=== PATIENT | female | born 1960 | race Caucasian/White ===

== ENCOUNTER → 2023-12-27 | Outpatient (CLI) | payer MEDICAID, SELFPAY ==
[2023-12-27 16:17] LABS: Absolute Lymphocyte Count 1.54 X10^3/uL (0.83-4.51); Absolute Neutrophil Count 3.3 X10^3/uL (2.0-7.7); Basophil# 0.05 X10^3/uL; Basophil% 0.9 % (0-1); Eosinophils% 1.8 % (0-5); Hematocrit 43.2 % (37-47); Hemoglobin 13.3 g/dL (12.0-15.0); Lymphocyte # 1.54 X10^3/ul (0.83-4.51); Lymphocyte % 28.1 % (19-41); Mean Corp Hgb Conc 30.8 g/dL (32-36); Mean Corpuscular Hgb 28.8 pg (27.0-32.0); Mean Corpuscular Volume 93.5 fL (81-99); Mean Platelet Vol. 11.9 fl (6.2-12.0); Monocyte# 0.46 X10^3/uL; Monocyte% 8.4 % (0-10); NRBC Flagged by Analyzer 0 % (0-5); Neutrophil # 3.33 X10^3/uL (2.7-7.7); Neutrophil % 60.6 % (47-70); Platelet Count 176 K/mm3 (150-450); RBC Distribution Width CV 12.9 % (11.6-14.6); RBC Distribution Width SD 44.2 fl (35.1-43.9); Red Blood Count 4.62 M/mm3 (4.2-5.4); White Blood Count 5.5 K/mm3 (4.4-11.0)
[2023-12-27 16:33] LABS: Vitamin D,25 Hydroxy 50.4 ng/mL
[2023-12-27 16:58] LABS: ALB/GLOB Ratio 1.1 RATIO (0.9-2.4); AST(SGOT) 19 U/L (15-37); Alanine Aminotransfer ALT/SGPT 22 U/L (13-56); Albumin, Serum 3.7 g/dL (3.2-5.0); Alkaline Phosphatase 65 U/L (45-117); Anion Gap 5 (5-15); BUN 21 mg/dL (7-18); BUN/Creat Ratio 27.6 RATIO (10-20); Chloride 105 mmol/L (98-107); Cholesterol 261 mg/dL (200); Creatinine, Serum 0.76 mg/dL (0.55-1.02); EST Glomerular Filtration Rate 81 mL/min (>60); Est Glom Filt Rate - Afr Amer 98 mL/min (>60); Globulin 3.3 g/dL (2.2-4.2); Glucose 85 mg/dL (74-106); High Density Lipoprotein 72 mg/dL; Potassium 4.2 mmol/L (3.5-5.1); Sodium Level 141 mmol/L (136-145); Triglycerides 179 mg/dL; Very Low Density Lipoprotein 36 mg/dL (5-40)
== END | disposition home or self-care (01) ==
PROVIDERS: PCP Nurse Practitioner Family; Referring Provider Nurse Practitioner Family; Visit Provider Nurse Practitioner Family
DX: Z00.01 Encounter for general adult medical examination with abnormal findings (principal)
CPT/HCPCS: 36415; 80053; 80061; 82306; 85025

== ENCOUNTER → 2024-02-03 | Outpatient (CLI) | payer MEDICAID, SELFPAY ==
--- NOTE | 2024-02-03 09:09 | CT_ITS ---
CT RIGHT LOWER EXTREMITY WITH 3-D IMAGING CLINICAL INDICATION: PRE OP TECHNIQUE: Axial CT images of the right lower extremity (including pelvis, bilateral hips, and bilateral knees). Was performed without IV contrast material. Coronal and sagittal reformats were provided. The protocol utilizes one or more of the following dose reduction techniques: automated exposure control, adjustment of mA and/or kV according to patient size, and/or use of iterative reconstruction technique. RADIATION DOSAGE (If Supplied By Facility): CTDIvol = ( 14.07 ) mGy, DLP = ( 916.80 ) mGycm COMPARISON: No relevant prior comparison study available. FINDINGS: Bones: There is severe degenerative arthrosis of the right hip joint with [id number], marginal osteophyte formation, and subchondral sclerosis/cyst formation. There is a 1.9 cm ossified loose body in the inferior recess of the right hip joint. There is moderate to severe degenerative arthrosis of the left hip joint. There is tricompartment degenerative arthrosis of the knee joints bilaterally, most pronounced in the medial femorotibial compartments bilaterally. There is degenerative disc disease in the visualized lumbosacral spine. Osseous structures are intact without evidence of fracture or dislocation. No lytic or blastic osseous masses. Soft Tissues: The deep soft tissue structures are unremarkable. The superficial soft tissues are unremarkable without evidence of edema, hematoma, or foreign body. CT/Extremity Lower without Contra IMPRESSION: Severe degenerative arthrosis of the right hip joint, as detailed above. 1.9 cm ossified loose body in the inferior recess of the right hip joint. Electronically Signed: Mundo Hampton MD at 9:54 EDT ,
== END | disposition home or self-care (01) ==
LOC: CT 09:06
PROVIDERS: PCP Nurse Practitioner Family; Referring Provider Student in an Organized Health Care Education/Training Program; Visit Provider Student in an Organized Health Care Education/Training Program
DX: M16.11 Unilateral primary osteoarthritis, right hip (principal)
CPT/HCPCS: 73700

== ENCOUNTER 2024-02-27 07:35 | Day surgery (SDC) | payer MEDICAID, SELFPAY ==
--- NOTE | 2024-02-03 09:07 | EKG12_ITS ---
Test Reason : PRE OP Blood Pressure : / mmHG Vent. Rate : 063 BPM Atrial Rate : 063 BPM P-R Int : 150 ms QRS Dur : 088 ms QT Int : 400 ms P-R-T Axes : 050 069 050 degrees QTc Int : 409 ms Normal sinus rhythm Low voltage QRS Borderline ECG Confirmed by LITA PECK, TORIE ([id number]), index editor JOSH MENDOZA ([id number]) on 02/03/2024 12:49:33 PM Referred By: Finn Tiwari Confirmed By:TORIE LONDON MD
[2024-02-03 10:17] LABS: Albumin, Serum 3.3 g/dL (3.2-5.0); Magnesium 2.2 mg/dL (1.6-2.6)
[2024-02-27] VITALS (14 sets, daily range): BP systolic 91–140; BP diastolic 57–81; PULSE 53–71; RESP 12–16; TEMP 36.1–36.2; O2SAT 93–100; BMI 38.5
[2024-02-27] MEDS: Lactated Ringers 1,000 ML 999 ML IV ×2 (08:01→11:37)
[2024-02-27] MEDS: Magnesium 1 GM over 15 mins IV (08:02)
[2024-02-27] MEDS: Celecoxib 200 MG Capsule 400 MG PO (08:04)
[2024-02-27] MEDS: Gabapentin 600 MG Tablet PO (08:04)
[2024-02-27] MEDS: Acetaminophen 500 MG Tablet 1000 MG PO ×2 (08:04→15:53)
[2024-02-27 08:19] LABS: Bedside Glucose 88 mg/dL (74-106)
--- NOTE | 2024-02-27 08:26 | PRE.ANES_ITS ---
ASA Classification* ASA Classification ASA Classification: 3 Assessment & Plan Anesthesia* Anesthesia Assessment Anesthesia Assessment: Discussed sedation and/or anesthesia options, risks, benefits, and alternatives with patient/parents/legal guardian/POA. Questions invited. The patient/parents/legal guardian/POA seems to understand and agrees to proceed with anesthesia plan. Reviewed the physical assessment, medical history, allergy history and patient home medications list prior to surgery/procedure/anesthetic and documented any changes. Performed airway and anesthesia risk assessments. Anesthesia Type Anesthesia Type: Spinal (GA bkup) Anesthesia Focused Assessment* Temperature: 97.2 F Pulse Rate: 71 Blood Pressure: 140/68 Respiratory Rate: 16 Pulse Ox: 100 Airway Assessment Mouth opens: >3 cm Mallampati Score: II Focused Labs Anesthesia Preop lab: CBC WBC 5.5 K/mm3 (4.4-11.0) 12/27/23 14:05 RBC 4.62 M/mm3 (4.2-5.4) 12/27/23 14:05 Hgb 13.3 g/dL (12.0-15.0) 12/27/23 14:05 Hct 43.2 % (37-47) 12/27/23 14:05 Plt Count 176 K/mm3 (150-450) 12/27/23 14:05 CHEMISTRY Potassium 4.2 mmol/L (3.5-5.1) 12/27/23 14:05 Sodium 141 mmol/L (136-145) 12/27/23 14:05 Magnesium 2.2 mg/dL (1.6-2.6) 02/03/24 09:32 BUN 21 mg/dL (7-18) H 12/27/23 14:05 Creatinine 0.76 mg/dL (0.55-1.02) 12/27/23 14:05 Glucose 85 mg/dL (74-106) 12/27/23 14:05 POC Glucose 88 mg/dL (74-106) 02/27/24 07:53 COAG Pre-Assessment Diagnosis/Proposed Procedure Planned Operative Procedure(s): ROBOTIC ASSISTED RIGHT TOTAL HIP ARTHROPLASTY Anesthesia History 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 When Was Last Pacemaker Check QUESTION #4 FULL TEXT: You/Your Family Experience fever (hyperthermia) with Anesthesia Last Oral Intake Last Oral intake: Last Oral Intake NPO since 20:00 02/27/24 07:51 Meds taken in AM with sips of Yes 02/27/24 07:51 water? Meds patient instructed to coreg 02/27/24 07:51 take am of surgery PONV PONV - agricultural and forestry supervisor: PONV - agricultural and forestry supervisor Female Yes 01/31/24 13:14 HX of Motion Sickness No 01/31/24 13:14 HX of N/V After Surgery No 01/31/24 13:14 Non-Smoker Yes 01/31/24 13:14 Duration of Surgery greater Yes 01/31/24 13:14 than 60 minutes Number of Risk Factors 3 01/31/24 13:14 PONV Score Moderate Risk 01/31/24 13:14 Height & Weight Height & Weight: Anesthesia: Height & Weight Height 5 ft 8 in 02/27/24 07:51 Weight: 115 kg 02/27/24 07:51 Body Mass Index (BMI) 38.5 02/27/24 07:51 Respiratory Assessment Respiratory Assessment - agricultural and forestry supervisor: Respiratory Tract Infection Hx - agricultural and forestry supervisor Hx Respiratory Tract Infection No 01/31/24 13:14 STOP Sleep Apnea STOP Sleep Apnea - agricultural and forestry supervisor: STOP Sleep Apnea - agricultural and forestry supervisor Hx Hypertension Yes 01/31/24 13:14 Hx Sleep Apnea No 01/31/24 13:14 CPAP Yes 12/12/23 09:40 BIPAP No 12/12/23 09:40 Do you snore loudly (louder No 01/31/24 13:14 than talking or can be heard Do you often feel tired/ No 01/31/24 13:14 fatigued/ sleepy during daytime? Has anyone observed you stop No 01/31/24 13:14 breathing during sleep? STOP Results Negative 01/31/24 13:14 QUESTION #5 FULL TEXT : Do you snore loudly (louder than talking or can be heard through closed doors)? 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 Specify any problems Hx of Preganancy in last 3 No 01/31/24 13:14 Months Nurse Filling Out Transfusion [facility] 01/31/24 13:14 & Questions: Date: 01/31/24 01/31/24 13:14 Time: 13:27 01/31/24 13:14 Patient unable to answer at this time (ie. confused, unrespo /Reproduction History /Reproductive History - agricultural and forestry supervisor: /Reproductive Hx- agricultural and forestry supervisor Hx Now No 01/31/24 13:14 Gestational Age (in weeks): EDC: Hx Hx Para Hx Section SAB No 01/31/24 13:14 Active Medications Active Medications: Current Medications Generic Name Dose Route Start Last Admin Trade Name Gildardo PRN Reason Stop Dose Admin Acetaminophen 1,000 mg 02/27/24 12:15 02/27/24 08:04 Acetaminophen 500 Mg Tablet PO 02/27/24 12:16 1,000 mg X1 ONE Administration Celecoxib 400 mg 02/27/24 12:15 02/27/24 08:04 Celecoxib 200 Mg Capsule PO 02/27/24 12:16 400 mg X1 ONE Administration Sodium Chloride 77.4 ml/ 0 ml 02/27/24 12:15 Ropivacaine 200 mg/ OPERA.SITE 02/27/24 12:16 Epinephrine HCl 0.6 mg/ X1 ONE Ketorolac Tromethamine 30 mg/ Morphine Sulfate 5 mg Dexamethasone Sodium Phosphate 10 mg 02/27/24 12:15 Dexamethasone 10 Mg/Ml Vial IV 02/27/24 12:16 X1 ONE Gabapentin 600 mg 02/27/24 12:15 02/27/24 08:04 Gabapentin 600 Mg Tablet PO 02/27/24 12:16 600 mg X1 ONE Administration Lactated Ringer's 1,000 mls @ 999 mls/hr 02/27/24 12:15 02/27/24 08:01 IV 02/27/24 13:15 999 mls/hr .Q1H1M CHRIS Administration Cefazolin Sodium 2 gm/ Sodium 110 mls @ 150 mls/hr 02/27/24 12:15 Chloride IV 02/27/24 12:58 PREOP ONE Tranexamic Acid 1,000 mg/ 110 mls @ 660 mls/hr 02/27/24 12:15 Sodium Chloride IV 02/27/24 12:24 X1 ONE Tranexamic Acid 1,000 mg/ 110 mls @ 660 mls/hr 02/27/24 13:15 Sodium Chloride IV 02/27/24 13:24 X1 ONE Lactated Ringer's 1,000 mls @ 999 mls/hr 02/27/24 13:15 IV 02/27/24 14:15 .Q1H1M CHRIS Lactated Ringer's 1,000 mls @ 125 mls/hr 02/27/24 14:15 IV 02/27/24 22:14 .Q8H CHRIS Magnesium Sulfate 1 gm/ 102 mls @ 408 mls/hr 02/27/24 12:15 02/27/24 08:02 Dextrose IV 02/27/24 12:29 408 mls/hr X1 ONE Administration Insulin Human Lispro 1 - 6 unit 02/27/24 12:15 Insulin Lispro 100 Unit/Ml Insuln.Pen SC 02/27/24 18:15 Q4H PRN PRN BG>/= 180, SEE PROTOCOL Protocol PFSH Medical History Wears glasses History of steroid therapy Walker as ambulation aid Arthritis DVT (deep venous thrombosis) Injury of head and neck Dietary restriction Former smoker Asthma History of stress test Hypertension Cardiology follow-up encounter History of femur fracture Home Medications ?Medication ?Instructions ?Recorded ?Last Taken ?Type albuterol sulfate 2.5 mg/3 mL 2.5 mg inhalation Q6H PRN PRN 09/06/24 Unknown History (0.083 %) solution for nebulization wheezing albuterol sulfate 90 mcg/actuation 1 puff inhalation Q4H PRN PRN 01/31/24 Unknown History aerosol inhaler wheezing carvedilol 25 mg tablet 25 mg PO BID 01/31/24 02/27/24 History ibuprofen 200 mg capsule 400 mg PO Q4H PRN pain 01/31/24 Unknown History Allergy/AdvReac Type Severity Reaction Status Date / Time aspirin (From Percodan) Allergy Other Verified 02/27/24 07:49 lisinopril Allergy Angioedema Verified 02/27/24 07:49 morphine Allergy Hives Verified 02/27/24 07:49 oxycodone (From Percodan) Allergy Other Verified 02/27/24 07:49 Surgical History History of mandibular surgery History of cervical spinal surgery History of oophorectomy, unilateral History of cholecystectomy History of hysterectomy History of D&C History of shoulder surgery History of knee surgery Social History Smoking Status: Former smoker Review of Systems (Anesthesia) ROS Narrative System reviewed and no additional complaints, except as documented.
[2024-02-27] MEDS: Cefazolin 2 GM in 0.9% Normal Saline (100mL Bag) 100 ML IV (09:00)
[2024-02-27] MEDS: TXA 1000mg in NS100 100ml (IVPB at Incision) 660 MG IV (09:15)
[2024-02-27] MEDS: dexAMETHasone 10 MG/ML Vial IV (09:15)
--- NOTE | 2024-02-27 10:30 | HIP_PTH ---
PATIENT: MONIE [address] LOC: [facility] – [place] U#:[id number] AGE/SX: 63/F ROOM: RE02/27/[address]: Dr. Finn Tiwari DO : 1960 BED: DIS: 02/27/2024 SPEC #: [id number] RECD: 02/27/24 18:15 STATUS: ROSE MARY REShad #: [id number] TIN: 02/27/24 10:[address]: Finn Tiwari DEPT: SURGICAL PATHOLOGY RECD BY: Hang Freire ENTERED: 02/28/24 07:41 SP TYPE: TOTAL HIP OTHR DR: Cielo Salgado, CAE ENGINEER-C Tissues: Hip, NOS Procedures: Decalcification bone/plaque Surgery Specimen Level IV HEADER OPERATION: Robotic assisted right total hip arthroplasty PRE-OP DIAGNOSIS: Severe osteoarthritis of right hip, arthritis, high blood pressure TISSUE SUBMITTED: Right hip bone and tissue MICROSCOPIC DIAGNOSIS Bone and tissue of right hip, total hip resection: Severe degenerative joint disease. AM: 03/04/2024 MICROSCOPIC DESCRIPTION Slides are reviewed. GROSS DESCRIPTION Received is one container labeled with the patient's name and designated bone and soft tissue right hip. The specimen consists of a garcia femoral head (with portion of femoral neck). The femoral head measures 5.0 x 6.0 x 4.5 cm portion of femoral neck measures up to 1.2 cm in length. The articular surface displays prominent osteophyte formation, eburnation and bone erosion. Also present in the specimen container are multiple irregular fragments of bone reamings and pink-yellow soft tissue measuring in aggregate 9.0 x 9.0 x 3.0 cm. A piece of soft tissue is noted measuring 6.0 x 1.5 x 0.5cm. Agency Owner sections are submitted in two cassettes as follows: 1 - soft tissue, 2 - bone after decalcification. / DEZ. 02/28/2024 TC:5 CPT: 08561, 37350
[2024-02-27] MEDS: JPS (Morphine 10mg/ml) OPERA.SITE (11:01)
[2024-02-27] MEDS: TXA 1000mg in NS100 100ml (IVPB at Closure) 660 MG IV (11:01)
--- NOTE | 2024-02-27 11:37 | PCM.POST.ANE ---
Anesthesia: Postop Eval I Current Vital Signs Temperature: 97 F Pulse Rate: 65 Blood Pressure: 133/75 Respiratory Rate: 16 Pulse Ox: 100 Oxygen Delivery Method: Room Air Assessment Airway patent: Yes Spontaneous unlabored respirations: Yes Mental status: Awake and Calm nausea: No Vomiting: No Anesthesia Complication: No Fluid Hydration Crystalloid volume administer (ml): 1,500 Total IV fluid infused: 1,500 Progress Note Anesthesia document: Postop Eval 1 completed: Yes
--- NOTE | 2024-02-27 11:53 | RAD_ITS ---
STUDY: X-RAY - PELVIS AND RIGHT HIP REASON FOR EXAM: Female, 63 years old. post op R MAKENNA -- in PACU TECHNIQUE: 2 views of the pelvis and hip. COMPARISON: None. FINDINGS: There is a non-specific bowel gas pattern. Normal visualized soft tissue structures. Normal bilateral iliac wings, sacroiliac joints and visualized sacrum. Normal bilateral superior and inferior pubic rami. Normal pubic symphysis. Normal bilateral ischial tuberosities. Status post recent right total hip arthroplasty with subcutaneous emphysema. The prosthesis appears located. . RAD/Hip Min 2 Views (Portable) IMPRESSION: Status post recent right total hip arthroplasty. Electronically Signed: Jude Kurtz MD at 8:48 EDT ,
--- NOTE | 2024-02-27 11:58 | PCM.OPRPT ---
Report of Operation Date of Procedure: 02/27/24 Description of Surgical Findings:: Preoperative diagnosis: Right hip primary osteoarthritis Postoperative diagnosis: Right hip primary osteoarthritis Procedure: Robotic assisted right total hip arthroplasty Surgeon: Finn Tiwari DO Congressional Assistant: Eliza Colvin PA-C Anesthesia: General endotracheal Herpetologist: Federico Hankins CRNA Complications: None apparent Drains: None Estimated blood loss: 150 cc Urinary output: none recorded IV fluids: 1000 cc crystalloid Specimens: Femoral head Surgical implants: Tingley Insignia High Offset hip stem size #3, Biolox delta ceramic V 40 femoral head 36 mm outer diameter +7.5 mm neck length, Tingley Trident X3 10 degree polyethylene insert, Trident 2 TriTanium cluster hole acetabular shell 52 mm diameter Indications: This is an 63 -year-old female seen in the outpatient setting for right hip pain. X-rays revealed severe right hip osteoarthritis. She failed oral fzyq-skl-zxasjxy analgesics including NSAIDs and Tylenol, activity modification. I recommended surgical intervention the form of right total hip arthroplasty. I reviewed the procedure with the patient, its risk, benefits, alternatives. Risks included but were not limited to bleeding, infection, loss of life or limb, risk of anesthesia, neurovascular injury, persistent pain, instability, need for additional surgery, failure of orthopedic hardware, loosening, osteolysis, need for assistive devices long-term, leg length discrepancy. Patient expressed understanding wish to proceed with surgery. Description of procedure: I greeted the patient in same-day surgery holding area the day of surgery. He was identified by name, medical record number, and date of . All questions were answered to patient satisfaction. The operative extremity was marked with a surgical marker. Informed consent was confirmed with the patient. Patient is brought to the op suite. Patient positioned supine onto the operating table where general anesthesia was induced and endotracheal tube placed. Patient was then positioned in a lateral decubitus position with the right side up. An axillary roll was placed under the patient's left axilla. The left fibular head was free. We then prepped and draped the right lower extremity in normal, sterile orthopedic fashion. Prior to the procedure, the Samir plan was reviewed and appeared appropriate based on the patient's CT scan and anatomy. We performed a timeout with all parties in attendance in agreement with the side, site, and operation to be performed. No concerns were voiced and would like to proceed. 1 g TXA IV as well as 3 g Ancef was administered prior to the incision by anesthesia staff. 1 g TXA IV was administered at time of closure additionally. I first elected to place our pelvic array with an oblique incision over the iliac crest just posterior to the ASIS. I bluntly dissected down the level of the periosteum. I then drilled 3 intracortical pins with excellent cortical purchase. Pelvic array was then assembled and positioned appropriately. I then turned my attention to the hip. A standard posterior lateral incision was made curvilinear over the posterior lateral hip, centered on the tip of the greater trochanter. Full-thickness skin incision was made, approximately 12 cm in length. I sharply dissected down the level of the fascia tyson. Fascia tyson was then incised in line with the incision. I bluntly dissected through the raphae of the gluteus damon. Femoral checkpoint was placed at this point. We then registered her femoral anatomy prior to dislocating the hip. I then internally rotated the hip. Limited gluteal bursectomy was performed to identify the short external rotators. A Cobra retractor was placed in his gluteus medius. Short external rotators were taken down with Bovie cautery and tagged for later repair with #2 Ethibond suture. This identified the underlying capsule. A hockey-stick shaped capsulotomy was made over the femoral neck carried posteriorly to the acetabular labrum. Labrum was released and the hip was dislocated. I then marked a standard femoral neck cut 1 fingerbreadth above the lesser trochanter. Sagittal saw was used to carefully cut the femoral neck. Femoral head was removed and examined and appeared benign. It was sent to pathology per hospital policy. I then turned my attention to the acetabulum. Cobra retractors were placed anterior and posteriorly. Self-retaining retractor was placed superiorly. Acetabular labrum was excised with a long handled knife. Acetabular pulmonary was excised with Bovie cautery. Hemostasis was excellent at this point. I then registered the acetabulum with the [employer] robot successfully. I then brought in the Samir robot with the acetabular reaming arm to a size 52. This was reamed and the planned position to the planned depth. Reamer was then removed. There was excellent bleeding bone at the base and excellent remaining anterior posterior white of the acetabulum. 52 mm acetabular component was selected for and attached to the industrial safety engineer arm of the robot. I placed the acetabular component near planned position before attaching to the robot. The robot then held the shell in position while I impacted it to an appropriate depth. The acetabular cup was then removed from the robotic arm. It had excellent rim fit. Large anterior osteophyte was then excised with a combination of curved osteotome and rongeur. I then selected a 10 degree posterior lipped liner and impacted this per sewage plant attendant recommendations. I then turned my attention to the femur. Box chisel was then utilized to gain access to the femoral canal. Canal finder was placed. Sequential broaches were used and press-fit manner. A final size 3 achieved excellent vertical and rotational stability. We then trialed with a high offset hip stem as templated. A +5 and +7.5 mm neck length were trialed. The +7. 5 mm neck achieved greater stability as well as allowed some lengthening of the limb, which was desired given his contralateral hip osteoarthritis. Trials were then removed. We copiously irrigated the wound with normal saline solution, Betadine solution, and irrisept solution. A size 3 stem was then impacted with excellent fixation. Final head was then impacted over clean, dry Sol taper neck. Final reduction was performed. A posterior capsular repair was performed with #2 Ethibond suture and bone tunnels, as well as the short external rotator repair. Femoral checkpoint was removed. Pelvic array pins were removed. IT band was closed watertight with #1 strata fix suture. Deeper fascial layers were closed with 0 Vicryl suture in interrupted fashion. Subcutaneous layers were reapproximated with 2-0 Vicryl suture and skin reapproximated with running subcuticular 3?0 strata fix and skin glue. Pelvic array incision was closed with buried 2-0 Vicryl suture and skin glue.. A silver dressing was applied. Patient tolerated procedure well without complication. She was positioned back in the supine position on his hospital bed. She was transferred to PACU in stable condition. A pillow was placed between the patient's leg to be present while he is in bed. Need for skilled elementary assistant teacher: Eliza Colvin PA-C was critical to the outcome of the case. During the course of the procedure the physician elementary assistant teacher played a vital role. Her intimate knowledge of my steps in the procedure aided in safe and expedient completion of the procedure. The PA played a vital role in positioning particularly in obtaining the appropriate positioning. The PA was also vital in the retraction of soft tissues during the exposure and projecting vital structures. The PA was also vital and protecting soft tissues during times of bony cuts. She also played a vital role in closure with my direct supervision. The PA was also important during reduction and dislocation of the joint and trials intraoperatively. Post Operative Plan: Plan for same-day surgery outpatient procedure. Patient will mobilize with therapy and same-day surgery to ensure safety prior to discharge. Weightbearing: Weightbearing as tolerated right lower extremity, posterior hip precautions. Pillows between legs while in bed. Physical therapy to start next week which has been scheduled already. Antibiotics: 1 g Ancef IV prior to discharge, 2 weeks oral doxycycline prophylactic. DVT Prophylaxis: Xarelto starting postoperative day number 1 x 2 weeks postoperatively due to history of venous thromboembolism. Lawrence: None Dressing: Maintain silver dressing x 5 days X-Rays: PACU x-rays were reviewed demonstrated well-positioned right total hip arthroplasty implant. Follow-up 2-week x-rays in the office. Follow-up: 2 weeks in my office as scheduled
--- NOTE | 2024-02-27 12:06 | POSTOPAN2_ITS ---
Anesthesia Postop Eval I Sum Postop Eval Completion status Anesthesia document: Postop Eval 1 completed: Yes Anesthesia Postop Eval I Summary Anesthesia Postop Eval I Summary: Anesthesia Postop Eval I: Assessment Summary Airway patent Yes 02/27/24 11:37 FRETTED INSTRUMENTS INSPECTOR.[email or web address] Spontaneous unlabored Yes 02/27/24 11:37 FRETTED INSTRUMENTS INSPECTOR.JBLOU respirations Mental status Awake,Calm 02/27/24 11:37 FRETTED INSTRUMENTS INSPECTOR.JBLOU nausea No 02/27/24 11:37 FRETTED INSTRUMENTS INSPECTOR.JBLOU Vomiting No 02/27/24 11:37 FRETTED INSTRUMENTS INSPECTOR.JBLOU Anesthesia Postop Eval I: Fluid Summary Crystalloid volume administer 1,500 02/27/24 11:37 FRETTED INSTRUMENTS INSPECTOR.JBLOU (ml) Colloids volume administered ( ml) Blood Product volume administered (ml) Total IV fluid infused 1,500 02/27/24 11:37 FRETTED INSTRUMENTS INSPECTOR.JBLOU Anesthesia Postop Eval I: Summary Notes Anesthesia Complication No 02/27/24 11:37 FRETTED INSTRUMENTS INSPECTOR.JBLOU Anesthesia Complication Comment: Post-operative progress note Anesthesia: Postop Eval II Evaluation Mental status: Awake Pain Level: 0 nausea: No Vomiting: No
--- NOTE | 2024-02-27 12:06 | PCM.POSTANE2 ---
Anesthesia Postop Eval I Sum Postop Eval Completion status Anesthesia document: Postop Eval 1 completed: Yes Anesthesia Postop Eval I Summary Anesthesia Postop Eval I Summary: Anesthesia Postop Eval I: Assessment Summary Airway patent Yes 02/27/24 11:37 [employer].[email or web address] Spontaneous unlabored Yes 02/27/24 11:37 [employer].[email or web address] respirations Mental status Awake,Calm 02/27/24 11:37 [employer].[email or web address] nausea No 02/27/24 11:37 [employer].[email or web address] Vomiting No 02/27/24 11:37 [employer].[email or web address] Anesthesia Postop Eval I: Fluid Summary Crystalloid volume administer 1,500 02/27/24 11:37 [employer].[email or web address] (ml) Colloids volume administered ( ml) Blood Product volume administered (ml) Total IV fluid infused 1,500 02/27/24 11:37 [employer]ER.[email or web address] Anesthesia Postop Eval I: Summary Notes Anesthesia Complication No 02/27/24 11:37 [employer]ER.[email or web address] Anesthesia Complication Comment: Post-operative progress note Anesthesia: Postop Eval II Evaluation Mental status: Awake Pain Level: 0 nausea: No Vomiting: No
[2024-02-27 13:02] LABS: Bedside Glucose 131 mg/dL (74-106)
[2024-02-27] MEDS: Cefazolin 1 GM/50 ML BAG IV (14:57)
[2024-02-27] MEDS: Lactated Ringers 1,000 ML 125 ML IV (15:00)
== END 2024-02-27 16:31 | disposition home or self-care (01) ==
LOC: SDC 07:36 → AC 07:36
PROVIDERS: PCP Nurse Practitioner Family; Referring Provider Student in an Organized Health Care Education/Training Program; Visit Provider Student in an Organized Health Care Education/Training Program
PROC: 8E0Y0CZ Robotic Assisted Procedure of Lower Extremity, Open Approach (ICD-10-PCS; CPT 27130; principal; 2024-02-27 10:00)
DX: M16.11 Unilateral primary osteoarthritis, right hip (principal); I10 Essential (primary) hypertension; J45.909 Unspecified asthma, uncomplicated; Z86.718 Personal history of other venous thrombosis and embolism; Z87.891 Personal history of nicotine dependence; Z79.01 Long term (current) use of anticoagulants; Z79.899 Other long term (current) drug therapy
CPT/HCPCS: 27130; 01214; 36415; 73502; 82040; 82962; 83735; 87081; 88305; 88311; 93005; 97162; C1776; J7120; J2405; J3475

== ENCOUNTER → 2024-06-03 | Outpatient (CLI) | payer MEDICAID, SELFPAY | END | disposition home or self-care (01) | LOC: LABSPEC 11:09 | PROVIDERS: PCP Nurse Practitioner Family; Visit Provider Nurse Practitioner Family | DX: N39.0 Urinary tract infection, site not specified (principal) | CPT/HCPCS: 87086; 87088 ==

== ENCOUNTER → 2024-06-23 | Outpatient (CLI) | payer MEDICARE, SELFPAY ==
--- NOTE | 2024-06-23 18:43 | CT_ITS ---
PROCEDURE: ABDOMEN/PELVIS WITHOUT CONT REASON FOR EXAM: Right flank pain x1 month. Prior cholecystectomy. Prior hysterectomy. Prior right hip surgery TECHNIQUE: Abdomen and pelvis CT without intravenous contrast. COMPARISON: None. FINDINGS: Noncontrast technique limits evaluation of the abdominal and pelvic viscera. Lung bases: Trace atelectasis within the right lung base and lingula. Liver: 1.1 cm well-marginated hypodensity within the right hepatic lobe, inferiorly, likely represent ing a liver cyst. Gallbladder: Surgically absent. Spleen: Unenhanced spleen appears within normal limits. Pancreas: Unenhanced pancreas appears within normal limits. No peripancreatic inflammatory changes. Adrenals: No adrenal masses are identified. Kidneys: Unremarkable. Bladder: Partially decompressed. Trace amounts of non dependent gas within the urinary bladder. Reproductive Organs: Uterus is surgically absent. Bowel: No bowel obstruction. Appendix is negative. Occasional diverticula involving the proximal si gmoid colon without gross surrounding inflammatory changes. Lymph nodes: No suspicious lymph node enlargement. Vasculature: Major vascular structures are unremarkable. Mild atherosclerotic calcifications within the distal abdominal aorta and iliac arteries. Peritoneum / Retroperitoneum: No ascites. No free air. Bones: Slight levocurvature involving the lumbar spine. Spondylotic change involving the lower lumba r spine. Mild degenerative changes of the left SI joint. Metallic streak artifact from right hip arthroplasty, partially imaged . Mild degenerative change involving the left hip. CT/Abdomen/Pelvis without Cont IMPRESSION: 1. No calcifications or obstructive uropathy involving the bilateral collecting systems. 2. Occasional diverticulum involving the proximal sigmoid colon, without gross surrounding inflammatory changes. 3. Appendix negative. 4. Urinary bladder is decompressed. Trace amount of nondependent gas within th e urinary bladder. Correlate for cystitis. 5. Probable liver cyst within the right hepatic lobe, inferiorly measuring 1.1 cm. 6. Additional findings, as detailed above. One or more dose reduction techniques were used (e.g., Automated exposure contr ol, adjustment of the mA and/or kV according to patient size, use of iterative reconstruction technique). Reading Location: [facility]
== END | disposition home or self-care (01) ==
LOC: CT 18:40
PROVIDERS: PCP Nurse Practitioner Family; Referring Provider Nurse Practitioner Family; Visit Provider Nurse Practitioner Family
DX: R10.9 Unspecified abdominal pain (principal)
CPT/HCPCS: 74176

== ENCOUNTER 2024-12-07 14:11 | Emergency (ER) | payer MEDICARE, SELFPAY ==
[2024-12-07 14:12] VITALS: BP 157/109; PULSE 87; RESP 16; TEMP 36.6; O2SAT 98; BMI 37.5
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
--- NOTE | 2024-12-07 15:46 | RAD_ITS ---
PROCEDURE: SHOULDER MIN 2 VIEWS 12/07/2024 REASON FOR EXAM: INJURY/PAIN TECHNIQUE: SHOULDER MIN 2 VIEWS COMPARISON: None. FINDINGS: No acute fracture or dislocation. Alignment is anatomic. Moderate degenerative arthrosis of the left AC and glenohumeral joints characterized by joint space narrowing, subchondral sclerosis and prominent marginal osteophytosis. No marked soft tissue swelling. RAD/Shoulder min 2 Views IMPRESSION: No acute fracture or dislocation. Moderate arthrosis of the left AC and glenohumeral joints. Reading Location: [id number]
--- NOTE | 2024-12-07 15:57 | CT_ITS ---
EXAM: BRAIN/HEAD WITHOUT CONTRAST; SPINE CERVICAL WITHOUT CONTRAS CLINICAL HISTORY: INJURY/PAIN COMPARISON: None. TECHNIQUE: Noncontrast images of the head and cervical spine with multiplanar reconstructions. Dose reduction techniques were used including intermediate exposure control (AEC),iterative reconstruction technique, and/or mA and/or KV dose adjustments based on patient's size. FINDINGS: HEAD: No acute intracranial hemorrhage, extra-axial collection, mass effect or evidence of acute infarct. Mild age-appropriate generalized brain parenchymal volume loss, and chronic microangiopathic changes. Orbital contents are unremarkable. Intact skull base and calvarium. Well-aerated paranasal sinuses and mastoid air cells. CERVICAL SPINE: No evidence of acute fracture or subluxation. There is straightening and slight reversal of the normal cervical lordosis, as well as degenerative mild anterolisthesis of C1 relative to C2 lateral masses. Multilevel spondylotic changes which are moderate at the atlantoaxial articulation, with the C1 anterolisthesis suggestive of chronic degenerative atlantoaxial instability, with resultant moderate spinal canal narrowing just below the foramen magnum. More mild spondylotic changes elsewhere. No prevertebral soft tissue swelling. Mild atherosclerotic vascular calcifications. Imaged lung apices are clear. Subcentimeter hypodense right thyroid nodule. CT/Spine Cervical without Contras IMPRESSION: 1. No acute intracranial abnormality. 2. No acute cervical spine fracture or traumatic malalignment. 3. Moderate degenerative changes at C1-2 with findings suggestive of atlantoaxi al instability, with moderate narrowing of the spinal canal just below foramen magnum. Reading Location: [id number]
[2024-12-07 16:11] VITALS: PULSE 80; RESP 18
[2024-12-07 18:00] VITALS: PULSE 78; RESP 16
== END 2024-12-07 18:25 | disposition home or self-care (01) ==
PROVIDERS: Emergency Provider Emergency Medicine; PCP Nurse Practitioner Family; Visit Provider Emergency Medicine
DX: S09.90XA Unspecified injury of head, initial encounter (principal); S16.1XXA Strain of muscle, fascia and tendon at neck level, initial encounter; I10 Essential (primary) hypertension; Z87.891 Personal history of nicotine dependence; S40.012A Contusion of left shoulder, initial encounter; Z86.718 Personal history of other venous thrombosis and embolism; J45.909 Unspecified asthma, uncomplicated; V49.40XA Driver injured in collision with unspecified motor vehicles in traffic accident, initial encounter
CPT/HCPCS: 70450; 72125; 73030; 99282